=== PATIENT | male | born 1955 | race Caucasian/White ===

== ENCOUNTER 2016-12-22 08:01 | Day surgery (SDC) | payer BC ==
[~2016-12-22] VITALS: Ht 177.8 cm; Wt 92.8 kg
[2016-12-22] VITALS (10 sets, daily range): BP systolic 105–127; BP diastolic 53–82; PULSE 51–92; TEMP 97.4–98.5
[~2016-12-22 08:01] MED LIST: 00186-0372-20 IH; ALLEGRA 180MG180 MG PO; ASPIRIN 81M81 MG/TA2 PO; BENICAR 20MG TA20 MG PO; BENICAR HCT 12.1 TA1 PO; DIFLUCAN 100MG100 MG PO; EPA/GLA1 SGL PO; FLAGYL500 MG PO; FLOMAX 0.40.4 MG/CAP PO; LEVAQUIN 5500 MG/TA1 PO; MULTIPLE VITAMI1 CAP PO; NASACORT AQ N16.5 GM NS; NORCO 325 MG-7.1 TAB PO; PRIL40 PO; PRILOSEC 20MG20 MG PO; PROSCAR 5MG5 MG PO; PROTONIX 40MG T40 MG PO; SINGULAIR 110 MG/TAB PO; SINUS MED; SUPER EPA 1201200 MG PO; VITAMIN D 400400 IU PO; VITAMINC1000TA PO; ZITHROMAX 250M250 MG PO; ZYRTEC 10MG10 MG PO; [UNRECOGNIZED DRUG - OTHER] NS
[2016-12-22] MEDS ORDERED: DHEA25 M3 PO (09:34)
[2016-12-22] MEDS ORDERED: HYZAAR 25 MG-101 TAB PO (09:39)
[2016-12-22] MEDS ORDERED: ASMANEX HF100 MCG/Ac IH (09:40)
[2016-12-22] MEDS ORDERED: PROBIOTIC-SUNMARK PO (09:41)
[2016-12-22] MEDS ORDERED: NATURE'S BLEND1 TA9 PO (09:41)
[2016-12-23 01:28] VITALS: BP 125/71; PULSE 65; TEMP 98.4
[2016-12-23 05:54] VITALS: BP 118/69; PULSE 59; TEMP 98.3
[2016-12-23 09:28] VITALS: BP 117/70; PULSE 70; TEMP 97.9
== END 2016-12-23 11:37 | disposition home or self-care (01) ==
LOC: SDCO 08:01 → SURG 14:30 → SDCO 12-23 11:37
DX: N40.1 Benign prostatic hyperplasia with lower urinary tract symptoms (principal); N41.9 Inflammatory disease of prostate, unspecified; I10 Essential (primary) hypertension; J45.909 Unspecified asthma, uncomplicated; K21.9 Gastro-esophageal reflux disease without esophagitis; R31.9 Hematuria, unspecified; Z85.51 Personal history of malignant neoplasm of bladder; Z80.51 Family history of malignant neoplasm of kidney
CPT/HCPCS: OP; J0690; J1100; J2250; J2270; J2405; J2704; J2765; J3010; J7030

== ENCOUNTER → 2018-08-16 | Outpatient (CLI) | payer OTHER ==
[~2018-08-16] MED LIST changes: +ASMANEX HF100 MCG/Ac IH; +DHEA25 M3 PO; +HYZAAR 25 MG-101 TAB PO; +NATURE'S BLEND1 TA9 PO; +PROBIOTIC-SUNMARK PO
== END ==
LOC: COL.RAD 12:55
DX: S06.0X0A Concussion without loss of consciousness, initial encounter (principal); M50.30 Other cervical disc degeneration, unspecified cervical region

== ENCOUNTER 2019-01-23 11:15 | Outpatient (RCR) | payer BC | END 2019-04-15 | disposition home or self-care (01) | LOC: WSST | DX: G31.84 Mild cognitive impairment of uncertain or unknown etiology (principal) ==